=== PATIENT | male | born 1985 | race American Indian/Alaskan Native ===

== ENCOUNTER 2016-11-24 19:07 | Emergency (ER) | payer MEDICAID ==
[2016-11-24] MEDS ORDERED: TRIPLE ANTIBIOTIC TP ONE (21:43)
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
[2016-11-24 22:46] VITALS: BP 139/77
== END 2016-11-24 22:56 | disposition home or self-care (01) ==
LOC: ED 19:07
DX: S81.802D Unspecified open wound, left lower leg, subsequent encounter (principal); Z48.02 Encounter for removal of sutures; F17.200 Nicotine dependence, unspecified, uncomplicated; Z88.6 Allergy status to analgesic agent; Z88.8 Allergy status to other drugs, medicaments and biological substances

== ENCOUNTER 2016-11-30 08:12 | Outpatient (CLI) | payer MEDICAID ==
[2016-11-30] MEDS ORDERED: XYLOCAINE TOPICAL 4% TP ONE ×2 (08:47→16:42)
== END 2016-11-30 08:13 | disposition home or self-care (01) ==
LOC: WOUND 08:12
PROVIDERS: ATTEND Podiatrist
DX: L97.822 Non-pressure chronic ulcer of other part of left lower leg with fat layer exposed (principal); F17.210 Nicotine dependence, cigarettes, uncomplicated; Z72.89 Other problems related to lifestyle
CPT/HCPCS: 11042; G0463; 99204

== ENCOUNTER 2016-12-06 09:56 | Outpatient (CLI) | payer MEDICAID ==
[2016-12-06] MEDS ORDERED: XYLOCAINE TOPICAL 4% TP ONE ×2 (10:12→12:26)
== END 2016-12-06 09:57 | disposition home or self-care (01) ==
LOC: WOUND 09:56
PROVIDERS: ATTEND Nurse Practitioner
DX: L97.822 Non-pressure chronic ulcer of other part of left lower leg with fat layer exposed (principal); F17.210 Nicotine dependence, cigarettes, uncomplicated; Z72.89 Other problems related to lifestyle

== ENCOUNTER 2016-12-13 10:08 | Outpatient (CLI) | payer MEDICAID ==
[2016-12-13] MEDS ORDERED: XYLOCAINE TOPICAL 4% TP ONE ×2 (10:52→11:13)
== END 2016-12-13 10:09 | disposition home or self-care (01) ==
LOC: WOUND 10:08
PROVIDERS: ATTEND Nurse Practitioner
DX: L97.822 Non-pressure chronic ulcer of other part of left lower leg with fat layer exposed (principal); F17.210 Nicotine dependence, cigarettes, uncomplicated; Z72.89 Other problems related to lifestyle

== ENCOUNTER 2016-12-27 08:15 | Outpatient (CLI) | payer MEDICAID ==
[2016-12-27] MEDS ORDERED: SILVER NITRATE TP ONE ×2 (08:46→15:40)
[2016-12-27] MEDS ORDERED: XYLOCAINE TOPICAL 4% TP ONE (09:00)
== END 2016-12-27 08:16 | disposition home or self-care (01) ==
LOC: WOUND 08:15
PROVIDERS: ATTEND Nurse Practitioner
DX: L97.822 Non-pressure chronic ulcer of other part of left lower leg with fat layer exposed (principal); F17.200 Nicotine dependence, unspecified, uncomplicated; Z72.89 Other problems related to lifestyle
CPT/HCPCS: 17250

== ENCOUNTER 2017-01-03 10:12 | Outpatient (CLI) | payer MEDICAID ==
[2017-01-03] MEDS ORDERED: XYLOCAINE TOPICAL 4% TP ONE (11:10)
[2017-01-04] MEDS ORDERED: XYLOCAINE TOPICAL 4% TP ONE (09:59)
== END 2017-01-03 10:13 | disposition home or self-care (01) ==
LOC: WOUND 10:12
PROVIDERS: ATTEND Nurse Practitioner
DX: L97.822 Non-pressure chronic ulcer of other part of left lower leg with fat layer exposed (principal); F17.210 Nicotine dependence, cigarettes, uncomplicated; Z72.89 Other problems related to lifestyle
CPT/HCPCS: 11042; G0463; 99213

== ENCOUNTER 2017-01-10 09:52 | Outpatient (CLI) | payer MEDICAID ==
[2017-01-10] MEDS ORDERED: XYLOCAINE TOPICAL 4% TP ONE ×3 (10:23→10:46)
== END 2017-01-10 09:53 | disposition home or self-care (01) ==
LOC: WOUND 09:52
PROVIDERS: ATTEND Nurse Practitioner
DX: L97.822 Non-pressure chronic ulcer of other part of left lower leg with fat layer exposed (principal); F17.200 Nicotine dependence, unspecified, uncomplicated; Z72.89 Other problems related to lifestyle

== ENCOUNTER 2017-01-17 10:15 | Outpatient (CLI) | payer MEDICAID ==
[2017-01-17] MEDS ORDERED: XYLOCAINE TOPICAL 2% ONE (11:08)
[2017-01-17] MEDS ORDERED: XYLOCAINE TOPICAL 2% TP ONE (11:08)
== END 2017-01-17 10:16 | disposition home or self-care (01) ==
LOC: WOUND 10:15
PROVIDERS: ATTEND Nurse Practitioner
DX: L97.822 Non-pressure chronic ulcer of other part of left lower leg with fat layer exposed (principal); F17.210 Nicotine dependence, cigarettes, uncomplicated; Z72.89 Other problems related to lifestyle

== ENCOUNTER 2017-01-24 09:41 | Outpatient (CLI) | payer MEDICAID | END 2017-01-24 09:42 | disposition home or self-care (01) | LOC: WOUND 09:41 | PROVIDERS: ATTEND Nurse Practitioner | DX: L97.822 Non-pressure chronic ulcer of other part of left lower leg with fat layer exposed (principal); F17.210 Nicotine dependence, cigarettes, uncomplicated; Z72.89 Other problems related to lifestyle | CPT/HCPCS: 99213; G0463 ==